=== PATIENT | male | born 1975 | race Caucasian/White ===

== ENCOUNTER 2017-07-19 20:56 | Emergency (ER) | payer MEDICAID ==
[2017-07-19 21:16] VITALS: BP 142/92
[2017-07-19] MEDS ORDERED: Ketorolac 60 MG/2 ML SDV IM ONE (21:20)
--- NOTE | 2017-07-19 21:23 | EDM.PDOC ---
ED HPI GENERAL MEDICAL PROBLEM - General Chief Complaint: Lower Extremity Injury/Pain Stated Complaint: R KNEE INJURY Time Seen by Provider: 07/19/17 21:18 Source of Information: Reports: Patient, Family, RN Notes Reviewed History Limitations: Reports: No Limitations - History of Present Illness INITIAL COMMENTS - FREE TEXT/NARRATIVE: 42-year-old gentleman presents emergency department day complaint of right knee pain, he does have a history of ACL repair as well as a couple arthroscopic is on this knee, the particular event happened tonight where he slipped on the ice twisted his right knee he can ambulate but it is quite painful knee Pain Score (Numeric/FACES): 10 - Related Data Allergies Allergy/AdvReac Type Severity Reaction Status Date / Time Penicillins Allergy Hives Verified 07/19/17 21:14 Home Meds: Home Meds Gabapentin [Neurontin] 800 mg PO TID 06/30/16 [History] Albuterol Sulfate [Proair Hfa] 2 puff INH Q6H PRN 07/28/16 [History] Sertraline [Zoloft] 150 mg PO DAILY 07/28/16 [History] Dextroamphetamine/Amphetamine [Adderall 20 mg Tablet] 40 mg PO TID 08/29/16 [ History] Past Medical History Cardiovascular History: Reports: High Cholesterol Respiratory History: Reports: Bronchitis, Recurrent, Pneumonia, Recurrent Gastrointestinal History: Reports: Other (See Below) Other Gastrointestinal History: colon infection Genitourinary History: Reports: Renal Calculus Neurological History: Reports: Concussion Psychiatric History: Reports: Anxiety, Depression Dermatologic History: Reports: Other (See Below) Other Dermatologic History: cyst on left chest, has had it since 5th grade. - Infectious Disease History Infectious Disease History: Reports: Chicken Pox - Past Surgical History HEENT Surgical History: Reports: Eye Surgery, Myringotomy w Tube(s), Tonsillectomy Musculoskeletal Surgical History: Reports: Other (See Below) Social & Family History - Tobacco Use Smoking Status *Q: Never Smoker Second Hand Smoke Exposure: No - Caffeine Use Caffeine Use: Reports: Coffee, Energy Drinks, Soda - Recreational Drug Use Recreational Drug Use: No Review of Systems - Review of Systems Review Of Systems: See Below Musculoskeletal: Reports: Joint Pain (Knee pain) Skin: Reports: No Symptoms Neurological: Reports: No Symptoms ED EXAM, GENERAL - Physical Exam Exam: See Below Free Text/Narrative:: Examination of the right knee I don't appreciate any erythema there is no bruising noted he does have a surgical scar across the anterior aspect of the knee he does not tolerate any movement without pain difficult to assess Mathias or valgus maneuvers as well as Elliott's secondary to pain Course - Vital Signs Last Recorded V/S: Last Vital Signs Temp 97.3 F 07/19/17 21:13 Pulse 87 07/19/17 21:13 Resp 16 07/19/17 21:13 BP 142/92 H 07/19/17 21:13 Pulse Ox 95 07/19/17 21:13 - Orders/Labs/Meds Orders: Active Orders 24 hr Category Date Time Status Knee 3V Rt [CR] Stat Exams 07/19/17 21:21 Taken Meds: Medications Discontinued Medications Generic Name Dose Route Start Last Admin Trade Name Rob PRN Reason Stop Dose Admin Ketorolac Tromethamine 60 mg 07/19/17 21:20 07/19/17 21:26 Toradol IM 07/19/17 21:21 60 mg ONETIME ONE Administration Departure - Departure Time of Disposition: 21:57 Disposition: Home, Self-Care 01 Condition: Good Clinical Impression: Strain of right knee Qualifiers: Encounter type: initial encounter Qualified Code(s): S86.911A - Strain of unspecified muscle(s) and tendon(s) at lower leg level, right leg, initial encounter - Discharge Information Referrals: PCP,None [Primary Care Provider] - Forms: ED Department Discharge Additional Instructions: Use ibuprofen for baseline pain control, use Percocet as needed for breakthrough pain, continue to use the crutches until reevaluated by your primary care provider on Tuesday - My Orders Last 24 Hours: My Active Orders 07/19/17 21:21 Knee 3V Rt [CR] Stat - Assessment/Plan Last 24 Hours: My Active Orders 07/19/17 21:21 Knee 3V Rt [CR] Stat Plan: Assessment Acuity = acute Site and laterality = right knee strain Etiology = secondary to twisting injury Manifestations = pain Location of injury = Home Lab values = knee x-ray I did review films myself I cannot appreciate any acute process, the official read from radiology is pending Plan He received some relief from the Toradol injection provided in the ED of 60 mg, Silviano wrap and crutches were used for comfort prescription written for Percocet one tablet by mouth 3 times a day when necessary total #10 he [facility] This note was dictated using Trunkbow voice recognition software please call with any questions on syntax or tl.
--- NOTE | 2017-07-20 08:35 | CR ---
Knee 3V Rt HISTORY: Pain, injury. COMPARISON: None FINDINGS: Postoperative change with small threaded screws in the ACL distribution. Normal joint space preservation. No effusion or fracture seen. No bony destructive change is seen.
== END 2017-07-19 22:17 | disposition home or self-care (01) ==
LOC: JP.ED 20:56
DX: S86.911A Strain of unspecified muscle(s) and tendon(s) at lower leg level, right leg, initial encounter (principal); E78.00 Pure hypercholesterolemia, unspecified; F32.9 Major depressive disorder, single episode, unspecified; Z79.899 Other long term (current) drug therapy; Z88.0 Allergy status to penicillin; W00.0XXA Fall on same level due to ice and snow, initial encounter; X50.1XXA Overexertion from prolonged static or awkward postures, initial encounter
CPT/HCPCS: 73562; 96374; 99284; J1885

== ENCOUNTER 2017-08-29 11:59 | Emergency (ER) | payer MEDICAID ==
[2017-08-29] MEDS ORDERED: Sodium Chloride 0.9% 1,000 ML IV SCH (12:30)
[2017-08-29] MEDS ORDERED: Ondansetron 4 MG/2 ML SDV IVPUSH ONE (12:31)
[2017-08-29] MEDS ORDERED: HYDROmorphone 0.5 MG/0.5 ML Syringe IVPUSH ONE ×2 (12:31→14:29)
[2017-08-29] MEDS ORDERED: HYDROmorphone 1 MG/ML Syringe IVPUSH ONE (15:48)
[2017-08-29] MEDS ORDERED: Ketorolac 30 MG/ML SDV IVPUSH ONE (16:46)
[2017-08-29 17:03] VITALS: BP 150/87
[2017-08-29] MEDS ORDERED: Tamsulosin 0.4 MG Cap.ER PO ONE (17:03)
--- NOTE | 2017-08-29 17:03 | EDM.PDOC ---
ED HPI GENERAL MEDICAL PROBLEM - General Chief Complaint: Genitourinary Problem Stated Complaint: LEFT FLANK PAIN/KIDNEY STONE Time Seen by Provider: 08/29/17 12:40 Source of Information: Reports: Patient History Limitations: Reports: No Limitations - History of Present Illness INITIAL COMMENTS - FREE TEXT/NARRATIVE: pt arrived with severe left flank pain. He states this started today and this has gotten progressively worse. s Onset: Today, Other (pt has a history of kidney stones. ) Duration: Hour(s): Location: Reports: Abdomen, Other ( left flank. ) Associated Symptoms: Reports: No Other Symptoms flank pain Pain Score (Numeric/FACES): 3 - Related Data Allergies Allergy/AdvReac Type Severity Reaction Status Date / Time Penicillins Allergy Hives Verified 07/19/17 21:14 Home Meds: Home Meds Gabapentin [Neurontin] 800 mg PO TID 06/30/16 [History] Albuterol Sulfate [Proair Hfa] 2 puff INH Q6H PRN 07/28/16 [History] Sertraline [Zoloft] 200 mg PO DAILY 07/28/16 [History] Dextroamphetamine/Amphetamine [Adderall 20 mg Tablet] 40 mg PO TID 08/29/16 [ History] Past Medical History Cardiovascular History: Reports: High Cholesterol Respiratory History: Reports: Bronchitis, Recurrent, Pneumonia, Recurrent Gastrointestinal History: Reports: Other (See Below) Other Gastrointestinal History: colon infection Genitourinary History: Reports: Renal Calculus Musculoskeletal History: Reports: Other (See Below) Other Musculoskeletal History: chronic pain right knee Neurological History: Reports: Concussion Psychiatric History: Reports: Anxiety, Depression Dermatologic History: Reports: Other (See Below) Other Dermatologic History: cyst on left chest, has had it since 5th grade. - Infectious Disease History Infectious Disease History: Reports: Chicken Pox - Past Surgical History HEENT Surgical History: Reports: Eye Surgery, Myringotomy w Tube(s), Tonsillectomy GI Surgical History: Reports: Appendectomy Musculoskeletal Surgical History: Reports: Arthroscopic Knee, Other (See Below) Other Musculoskeletal Surgeries/Procedures:: ACL repaired, removed, replaced Social & Family History - Tobacco Use Smoking Status *Q: Never Smoker Second Hand Smoke Exposure: No - Caffeine Use Caffeine Use: Reports: Coffee, Energy Drinks, Soda - Recreational Drug Use Recreational Drug Use: No ED ROS GENERAL - Review of Systems Review Of Systems: See Below Constitutional: Reports: No Symptoms HEENT: Reports: No Symptoms Respiratory: Reports: No Symptoms Cardiovascular: Reports: No Symptoms Endocrine: Reports: No Symptoms GI/Abdominal: Reports: No Symptoms : Reports: No Symptoms, Other (pt has severe left flank pain. ) Musculoskeletal: Reports: No Symptoms Skin: Reports: No Symptoms ED EXAM, GI/ABD - Physical Exam Exam: See Below Text/Narrative:: pt arrived with severe left flank pain. He has a history of stones and it flelt like a stone. Exam Limited By: No Limitations General Appearance: Alert, Anxious, Moderate Distress Ears: Normal TMs Nose: Normal Inspection Throat/Mouth: Normal Inspection Head: Atraumatic Neck: Normal Inspection Respiratory/Chest: No Respiratory Distress Cardiovascular: Regular Rate, Rhythm GI/Abdominal Exam: Other (pt has tenderness in the flank but not the abdoman. ) (Male) Exam: Normal Inspection Rectal (Males) Exam: Deferred Back Exam: Normal Inspection Course - Vital Signs Last Recorded V/S: Last Vital Signs Temp 35.8 C 08/29/17 13:40 Pulse 79 08/29/17 15:32 Resp 12 08/29/17 15:32 BP 135/87 08/29/17 15:32 Pulse Ox 97 08/29/17 15:32 - Orders/Labs/Meds Orders: Active Orders 24 hr Category Date Time Status Abdomen Pelvis wo Cont [CT] Stat Exams 08/29/17 14:29 Taken Sodium Chloride 0.9% [Normal Saline] 1,000 ml Med 08/29/17 12:30 Active IV ASDIRECTED Medication Orders Sodium Chloride (Normal Saline) 1,000 mls @ 999 mls/hr IV ASDIRECTED VIVEK Last Admin: 08/29/17 13:26 Dose: 999 mls/hr Labs: Laboratory Tests 08/29/17 08/29/17 08/29/17 Range/Units 12:31 12:36 12:36 WBC 9.9 (4.5-11.0) K/uL RBC 6.35 H (4.30-5.90) M/uL Hgb 17.5 H (12.0-15.0) g/dL Hct 49.5 (40.0-54.0) % MCV 78 L (80-98) fL MCH 28 (27-31) pg MCHC 35 (32-36) % Plt Count 257 (150-400) K/uL Neut % (Auto) 53 (36-66) % Lymph % (Auto) 35 (24-44) % [place] % (Auto) 11 H (2-6) % Eos % (Auto) 1 L (2-4) % Baso % (Auto) 0 (0-1) % Sodium 138 L (140-148) mmol/L Potassium 3.9 (3.6-5.2) mmol/L Chloride 102 (100-108) mmol/L Carbon Dioxide 28 (21-32) mmol/L Anion Gap 11.9 (5.0-14.0) mmol/L BUN 13 (7-18) mg/dL Creatinine 1.3 (0.8-1.3) mg/dL Est Cr Clr Drug Dosing 71.62 mL/min Estimated GFR (MDRD) > 60 (>60) Glucose 88 (74-106) mg/dL Calcium 9.4 (8.5-10.1) mg/dL Total Bilirubin 0.8 (0.2-1.0) mg/dL AST 24 (15-37) U/L ALT 45 (12-78) U/L Alkaline Phosphatase 78 (46-116) U/L Total Protein 7.6 (6.4-8.2) g/dL Albumin 4.5 (3.4-5.0) g/dL Globulin 3.1 (2.3-3.5) g/dL Albumin/Globulin Ratio 1.5 (1.2-2.2) Urine Color Yellow Urine Appearance Cloudy Urine pH 5.0 (4.5-8.0) Ur Specific [place] 1.025 (1.008-1.030) Urine Protein Trace (NEGATIVE) mg/dL Urine Glucose (UA) Normal (NEGATIVE) mg/dL Urine Ketones Negative (NEGATIVE) mg/dL Urine Occult Blood Large (NEGATIVE) Urine Nitrite Negative (NEGAITVE) Urine Bilirubin Small (NEGATIVE) Urine Urobilinogen Normal (NORMAL) mg/dL Ur Leukocyte Esterase Small (NEGATIVE) Urine RBC 0-5 (0-5) Urine WBC 5-10 H (0-5) Ur Epithelial Cells Rare Amorphous Sediment Not seen Urine Bacteria Not seen Urine Mucus Moderate Meds: Medications Generic Name Dose Route Start Last Admin Trade Name Freq PRN Reason Stop Dose Admin Sodium Chloride 1,000 mls @ 999 mls/hr 08/29/17 12:30 08/29/17 13:26 Normal Saline IV 999 mls/hr ASDIRECTED VIVEK Administration Discontinued Medications Generic Name Dose Route Start Last Admin Trade Name Eranq PRN Reason Stop Dose Admin Hydromorphone HCl 0.5 mg 08/29/17 12:31 08/29/17 13:35 Dilaudid IVPUSH 08/29/17 12:32 0.5 mg ONETIME ONE Administration Hydromorphone HCl 0.5 mg 08/29/17 14:29 08/29/17 14:34 Dilaudid IVPUSH 08/29/17 14:30 0.5 mg ONETIME ONE Administration Hydromorphone HCl 1 mg 08/29/17 15:48 08/29/17 16:01 Dilaudid IVPUSH 08/29/17 15:49 1 mg ONETIME ONE Administration Ketorolac Tromethamine 30 mg 08/29/17 16:46 Toradol IVPUSH 08/29/17 16:47 ONETIME ONE Ondansetron HCl 4 mg 08/29/17 12:31 08/29/17 13:32 Zofran IVPUSH 08/29/17 12:32 4 mg ONETIME ONE Administration - Re-Assessments/Exams Free Text/Narrative Re-Assessment/Exam: 08/29/17 17:02 urine did not reveal alot of blood. He waS GIVEN A TOTAL OF 2 MG OF DILAUDID. hE HAS HAD RELIEF WITH THAT. hE HAD A CAT SCAN OF THE ABDOMAN WHICH REVEALED A 7 MM STONE IN THE PROXIMAL URETER. Departure - Departure Time of Disposition: 17:03 Disposition: Home, Self-Care 01 Condition: Fair Clinical Impression: Calculus of proximal left ureter - Discharge Information Referrals: PCP,None [Primary Care Provider] - Care Plan Goals: PUSH FLUIDS. hE WAS ADVISED THAT THIS WAS A LARGE STONE AND THAR IT MIGHT NOT BE PASSABLE AND HE WOULD NEED TO SEE UROLOGY. FLOMAX .4 DAILY, TORODOL 10MG QID, PERCOCET 5/325 1 TAB Q6H PRN FOR PAIN. - My Orders Last 24 Hours: My Active Orders 08/29/17 12:30 Sodium Chloride 0.9% [Normal Saline] 1,000 ml IV ASDIRECTED 08/29/17 14:29 Abdomen Pelvis wo Cont [CT] Stat - Assessment/Plan Last 24 Hours: My Active Orders 08/29/17 12:30 Sodium Chloride 0.9% [Normal Saline] 1,000 ml IV ASDIRECTED 08/29/17 14:29 Abdomen Pelvis wo Cont [CT] Stat
== END 2017-08-29 17:33 | disposition home or self-care (01) ==
LOC: JP.ED 11:59
DX: N20.1 Calculus of ureter (principal); E78.00 Pure hypercholesterolemia, unspecified; Z88.0 Allergy status to penicillin; Z79.899 Other long term (current) drug therapy
CPT/HCPCS: 36415; 74176; 80053; 81001; 85025; 96361; 96374; 96375; 96376; 99284; J1170; J1885; J2405; J7040

== ENCOUNTER 2017-12-11 15:34 | Emergency (ER) | payer MEDICAID ==
[2017-12-11] MEDS ORDERED: Aspirin 81 MG Tab.Chew PO ONE (16:03)
[2017-12-11] MEDS ORDERED: Sodium Chloride 0.9% 10 ML Syringe FLUSH PRN (16:03)
[2017-12-11] MEDS ORDERED: Nitroglycerin 0.4 MG Tab.SL SL PRN (16:04)
--- NOTE | 2017-12-11 16:07 | EDM.PDOC ---
ED HPI GENERAL MEDICAL PROBLEM - General Chief Complaint: Chest Pain Stated Complaint: HEART Time Seen by Provider: 12/11/17 16:00 Source of Information: Reports: Patient History Limitations: Reports: No Limitations - History of Present Illness INITIAL COMMENTS - FREE TEXT/NARRATIVE: Alphonse is a 42 year old male, hx of IN a "few years ago" who was here with his who was being seen as a patient when he developed sudden onset of left sided sharp chest pain and numbness down his left arm. Patient denies any recent illness, denies hx of stents. He does not take aspirin. He denies smoking but does chew tobacco. Pain feels similar per patient to last IN. Nothing makes pain better or worse. Onset: Sudden Left Chest Pain Score (Numeric/FACES): 9 - Related Data Allergies Allergy/AdvReac Type Severity Reaction Status Date / Time Penicillins Allergy Hives Verified 12/11/17 15:43 Home Meds: Home Meds Gabapentin [Neurontin] 800 mg PO TID 06/30/16 [History] Albuterol Sulfate [Proair Hfa] 2 puff INH Q6H PRN 07/28/16 [History] Sertraline [Zoloft] 200 mg PO DAILY 07/28/16 [History] Dextroamphetamine/Amphetamine [Adderall 20 mg Tablet] 40 mg PO TID 08/29/16 [ History] Past Medical History Cardiovascular History: Reports: High Cholesterol Respiratory History: Reports: Bronchitis, Recurrent, Pneumonia, Recurrent Gastrointestinal History: Reports: Other (See Below) Other Gastrointestinal History: colon infection Genitourinary History: Reports: Renal Calculus Musculoskeletal History: Reports: Other (See Below) Other Musculoskeletal History: chronic pain right knee Neurological History: Reports: Concussion Psychiatric History: Reports: ADHD, Anxiety, Depression, PTSD Dermatologic History: Reports: Other (See Below) Other Dermatologic History: cyst on left chest, has had it since 5th grade. - Infectious Disease History Infectious Disease History: Reports: Chicken Pox - Past Surgical History HEENT Surgical History: Reports: Eye Surgery, Myringotomy w Tube(s), Tonsillectomy GI Surgical History: Reports: Appendectomy Male Surgical History: Reports: Kidney Stone Extraction Musculoskeletal Surgical History: Reports: Arthroscopic Knee, Other (See Below) Other Musculoskeletal Surgeries/Procedures:: ACL repaired, removed, replaced Social & Family History - Tobacco Use Years of Tobacco use: 24 Packs/Tins Daily: 0.3 - Caffeine Use Caffeine Use: Reports: Coffee, Energy Drinks, Soda - Recreational Drug Use Recreational Drug Use: No ED ROS GENERAL - Review of Systems Review Of Systems: ROS reveals no pertinent complaints other than HPI. ED EXAM, GENERAL - Physical Exam Exam: See Below Exam Limited By: No Limitations General Appearance: Alert, WD/WN, No Apparent Distress Throat/Mouth: Normal Inspection Head: Atraumatic Neck: Normal Inspection Respiratory/Chest: No Respiratory Distress, Lungs Clear Cardiovascular: Normal Peripheral Pulses, Regular Rate, Rhythm, No Murmur GI/Abdominal: Normal Bowel Sounds, Soft, Non-Tender Extremities: Normal Inspection Neurological: Alert, Oriented, CN II-XII Intact Psychiatric: Normal Affect, Anxious Skin Exam: Warm, Dry, Intact Lymphatic: No Adenopathy EKG INTERPRETATION EKG Date: 12/11/17 Time: 15:35 Rhythm: NSR [place]: Normal P-Wave: Present QRS: Normal ST-T: Normal QT: Normal Comparison: No Change (From 07/24/2016) Course - Vital Signs Last Recorded V/S: Last Vital Signs Temp 37.5 C 12/11/17 15:38 Pulse 94 12/11/17 19:08 Resp 16 12/11/17 19:08 BP 165/98 H 12/11/17 19:08 Pulse Ox 94 L 12/11/17 19:08 Alphonse is a 42-year-old male, history of IN who presents to the emergency department today with acute onset of left-sided chest pain. Please refer to history of present illness and focused exam. Patient is hemodynamically stable here is afebrile, pain is not reproducible. Pain did not change here with nitroglycerin, did improve with Toradol and Ativan. Initial troponin is unremarkable, remaining blood work as noted above. 1945-Second troponin remains undectable. Heart score of 2 supporting discharge home with follow up. Patient is pain free and requesting discharge. Start baby aspirin daily. Follow up with primary this week. Reasons to return to the ED discussed. Patient agreeable and discharged in stable condition with his daughter driving. - Orders/Labs/Meds Orders: Active Orders 24 hr Category Date Time Status EKG Documentation Completion [RC] ASDIRECTED Care 12/11/17 17:26 Active Peripheral IV Care [RC] . DIRECTED Care 12/11/17 16:03 Active Chest 2V [CR] Stat Exams 12/11/17 17:20 Taken Nitroglycerin [Nitrostat] Med 12/11/17 16:04 Active 0.4 mg SL Q5M PRN Sodium Chloride 0.9% [Saline Flush] Med 12/11/17 16:03 Active 10 ml FLUSH ASDIRECTED PRN Peripheral IV Insertion Adult [OM.PC] Routine Oth 12/11/17 16:03 Ordered EKG 12 Lead [EK] Stat Ther 12/11/17 17:25 Ordered Medication Orders Nitroglycerin (Nitrostat) 0.4 mg SL Q5M PRN PRN Reason: Chest Pain Last Admin: 12/11/17 16:23 Dose: 0.4 mg Sodium Chloride (Saline Flush) 10 ml FLUSH ASDIRECTED PRN PRN Reason: Keep Vein Open Last Admin: 12/11/17 16:23 Dose: 10 ml Labs: Laboratory Tests 12/11/17 12/11/17 12/11/17 Range/Units 16:07 16:07 19:26 WBC 8.2 (4.5-11.0) K/uL RBC 5.55 (4.30-5.90) M/uL Hgb 15.9 H (12.0-15.0) g/dL Hct 43.5 (40.0-54.0) % MCV 78 L (80-98) fL MCH 29 (27-31) pg MCHC 37 H (32-36) % Plt Count 229 (150-400) K/uL Neut % (Auto) 65 (36-66) % Lymph % (Auto) 24 (24-44) % [place] % (Auto) 11 H (2-6) % Eos % (Auto) 1 L (2-4) % Baso % (Auto) 0 (0-1) % Sodium 138 L (140-148) mmol/L Potassium 3.5 L (3.6-5.2) mmol/L Chloride 103 (100-108) mmol/L Carbon Dioxide 21 (21-32) mmol/L Anion Gap 17.5 H (5.0-14.0) mmol/L BUN 11 (7-18) mg/dL Creatinine 1.2 (0.8-1.3) mg/dL Est Cr Clr Drug Dosing 77.58 mL/min Estimated GFR (MDRD) > 60 (>60) Glucose 109 H (74-106) mg/dL Calcium 8.6 (8.5-10.1) mg/dL Total Bilirubin 1.0 (0.2-1.0) mg/dL AST 18 (15-37) U/L ALT 33 (12-78) U/L Alkaline Phosphatase 78 (46-116) U/L Troponin I < 0.017 < 0.017 (0.000-0.056) ng/mL Total Protein 7.3 (6.4-8.2) g/dL Albumin 4.2 (3.4-5.0) g/dL Globulin 3.1 (2.3-3.5) g/dL Albumin/Globulin Ratio 1.4 (1.2-2.2) Meds: Medications Generic Name Dose Route Start Last Admin Trade Name Rob PRN Reason Stop Dose Admin Nitroglycerin 0.4 mg 12/11/17 16:04 12/11/17 16:23 Nitrostat SL 0.4 mg Q5M PRN Administration Chest Pain Sodium Chloride 10 ml 12/11/17 16:03 12/11/17 16:23 Saline Flush FLUSH 10 ml ASDIRECTED PRN Administration Keep Vein Open Discontinued Medications Generic Name Dose Route Start Last Admin Trade Name Freq PRN Reason Stop Dose Admin Aspirin 324 mg 12/11/17 16:03 12/11/17 16:23 Aspirin PO 12/11/17 16:04 324 mg ONETIME ONE Administration Ketorolac Tromethamine 30 mg 12/11/17 16:32 12/11/17 16:50 Toradol IVPUSH 12/11/17 16:33 30 mg ONETIME ONE Administration Lorazepam 1 mg 12/11/17 16:32 12/11/17 16:52 Ativan IVPUSH 12/11/17 16:33 1 mg ONETIME ONE Administration Morphine Sulfate 4 mg 12/11/17 18:08 12/11/17 18:16 Morphine IVPUSH 12/11/17 18:09 4 mg ONETIME ONE Administration Morphine Sulfate 4 mg 12/11/17 18:44 12/11/17 19:06 Morphine IVPUSH 12/11/17 18:45 4 mg ONETIME ONE Administration Departure - Departure Time of Disposition: 20:15 Disposition: Home, Self-Care 01 Condition: Good Clinical Impression: Atypical chest pain Instructions: Nonspecific Chest Pain Referrals: PCP,None [Primary Care Provider] - Forms: ED Department Discharge Additional Instructions: Start taking a baby aspirin daily. Follow up with your primary care provider later this week to discuss need for stress test and echocardiogram Return here with any return or worsening of your symptoms. - My Orders Last 24 Hours: My Active Orders 12/11/17 16:03 Peripheral IV Care [RC] . DIRECTED Sodium Chloride 0.9% [Saline Flush] 10 ml FLUSH ASDIRECTED PRN Peripheral IV Insertion Adult [OM.PC] Routine 12/11/17 16:04 Nitroglycerin [Nitrostat] 0.4 mg SL Q5M PRN 12/11/17 17:20 Chest 2V [CR] Stat 12/11/17 17:25 EKG 12 Lead [EK] Stat 12/11/17 17:26 EKG Documentation Completion [RC] ASDIRECTED - Assessment/Plan Last 24 Hours: My Active Orders 12/11/17 16:03 Peripheral IV Care [RC] . DIRECTED Sodium Chloride 0.9% [Saline Flush] 10 ml FLUSH ASDIRECTED PRN Peripheral IV Insertion Adult [OM.PC] Routine 12/11/17 16:04 Nitroglycerin [Nitrostat] 0.4 mg SL Q5M PRN 12/11/17 17:20 Chest 2V [CR] Stat 12/11/17 17:25 EKG 12 Lead [EK] Stat 12/11/17 17:26 EKG Documentation Completion [RC] ASDIRECTED
[2017-12-11] MEDS ORDERED: Ketorolac 30 MG/ML SDV IVPUSH ONE (16:32)
[2017-12-11] MEDS ORDERED: LORazepam 2 MG/ML SDV IVPUSH ONE (16:32)
[2017-12-11] MEDS ORDERED: Morphine 4 MG/ML Syringe IVPUSH ONE ×2 (18:08→18:44)
[2017-12-11 19:09] VITALS: BP 165/98
--- NOTE | 2017-12-12 09:57 | CR ---
CHEST: 2 view CLINICAL HISTORY:Chest pain COMPARISON:2017 FINDINGS: Heart size, pulmonary vascularity and hilar structures are normal. No infiltrate effusion or pneumothorax is seen. . IMPRESSION: No acute pulmonary process
== END 2017-12-11 20:50 | disposition home or self-care (01) ==
LOC: JP.ED 15:34
DX: R07.89 Other chest pain (principal); F17.210 Nicotine dependence, cigarettes, uncomplicated; E78.00 Pure hypercholesterolemia, unspecified; F41.9 Anxiety disorder, unspecified; F32.9 Major depressive disorder, single episode, unspecified; F43.10 Post-traumatic stress disorder, unspecified; F90.9 Attention-deficit hyperactivity disorder, unspecified type; Z88.0 Allergy status to penicillin; Z79.899 Other long term (current) drug therapy
CPT/HCPCS: 36415; 71046; 80053; 84484; 85025; 93005; 96374; 96375; 96376; 99285; A9270; J1885; J2060; J2270; J7050

== ENCOUNTER 2018-07-28 20:01 | Emergency (ER) | payer MEDICAID ==
[2018-07-28] MEDS ORDERED: Ketorolac 60 MG/2 ML SDV IM ONE (20:55)
[2018-07-28] MEDS ORDERED: Acetaminophen/oxyCODONE 325-5 MG Tab PO ONE (20:55)
--- NOTE | 2018-07-28 20:57 | EDM.PDOC ---
ED HPI GENERAL MEDICAL PROBLEM - General Chief Complaint: Flank Pain Stated Complaint: KIDNEY STONES Time Seen by Provider: 07/28/18 20:56 Source of Information: Reports: Patient, Old Records, RN History Limitations: Reports: No Limitations - History of Present Illness INITIAL COMMENTS - FREE TEXT/NARRATIVE: 43 yo male with kidney stone hx presents with L flank pain. No nausea or fever. No gross hematuria. Feels like his previous kidney stones. Onset: Today Onset Date: 07/28/18 Onset Time: 19:30 Duration: Minutes:, Waxing/Waning Location: Reports: Back (L flank) Quality: Reports: Ache, Stabbing Severity: Severe Improves with: Reports: None Worsens with: Reports: None Context: Reports: Other (see HPI) Associated Symptoms: Reports: No Other Symptoms. 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 (see below) (none) Left Flank Pain Score (Numeric/FACES): 10 - Related Data Allergies Allergy/AdvReac Type Severity Reaction Status Date / Time Penicillins Allergy Hives Verified 07/28/18 20:47 Home Meds: Home Meds Gabapentin [Neurontin] 800 mg PO TID 06/30/16 [History] Albuterol Sulfate [Proair Hfa] 2 puff INH Q6H PRN 07/28/16 [History] Sertraline [Zoloft] 200 mg PO DAILY 07/28/16 [History] Dextroamphetamine/Amphetamine [Adderall 20 mg Tablet] 40 mg PO TID 08/29/16 [ History] Past Medical History Cardiovascular History: Reports: High Cholesterol Respiratory History: Reports: Bronchitis, Recurrent, Pneumonia, Recurrent Gastrointestinal History: Reports: Other (See Below) Other Gastrointestinal History: colon infection Genitourinary History: Reports: Renal Calculus Musculoskeletal History: Reports: Other (See Below) Other Musculoskeletal History: chronic pain right knee Neurological History: Reports: Concussion Psychiatric History: Reports: ADHD, Anxiety, Depression, PTSD Dermatologic History: Reports: Other (See Below) Other Dermatologic History: cyst on left chest, has had it since 5th grade. - Infectious Disease History Infectious Disease History: Reports: Chicken Pox - Past Surgical History HEENT Surgical History: Reports: Eye Surgery, Myringotomy w Tube(s), Tonsillectomy GI Surgical History: Reports: Appendectomy Male Surgical History: Reports: Kidney Stone Extraction Musculoskeletal Surgical History: Reports: Arthroscopic Knee, Other (See Below) Other Musculoskeletal Surgeries/Procedures:: ACL repaired, removed, replaced Social & Family History - Tobacco Use Smoking Status *Q: Never Smoker - Caffeine Use Caffeine Use: Reports: Coffee, Energy Drinks, Soda - Recreational Drug Use Recreational Drug Use: No ED ROS GENERAL - Review of Systems Review Of Systems: See Below Constitutional: Reports: No Symptoms HEENT: Reports: No Symptoms Respiratory: Reports: No Symptoms Cardiovascular: Reports: No Symptoms GI/Abdominal: Reports: No Symptoms : Reports: Flank Pain (left) Musculoskeletal: Reports: No Symptoms Skin: Reports: No Symptoms Neurological: Reports: No Symptoms ED EXAM, RENAL/ - Physical Exam Exam: See Below Exam Limited By: No Limitations General Appearance: Alert, WD/WN, Mild Distress Eye Exam: Bilateral Eye: Normal Inspection Ears: Normal External Exam, Normal Canal, Hearing Grossly Normal Nose: Normal Inspection, No Blood Throat/Mouth: Normal Inspection, Normal Lips, Normal Voice, No Airway Compromise Head: Atraumatic, Normocephalic Neck: Normal Inspection Respiratory/Chest: No Respiratory Distress, Lungs Clear, Normal Breath Sounds, No Accessory Muscle Use Cardiovascular: Regular Rate, Rhythm, No Edema GI/Abdominal: Normal Bowel Sounds, Soft, Non-Tender, No Distention (Male) Exam: No: Hernia, Rash Back Exam: Normal Inspection, Full Range of Motion. No: CVA Tenderness (R), CVA Tenderness (L), Decreased Range of Motion, Muscle Spasm, Paraspinal Tenderness, Vertebral Tenderness Extremities: Normal Inspection, Normal Range of Motion, Non-Tender Neurological: Alert, Oriented, CN II-XII Intact, Normal Cognition, No Motor/ Sensory Deficits Psychiatric: Normal Affect, Normal Mood Skin Exam: Warm, Dry, Intact, Normal Color, No Rash Lymphatic: No Adenopathy Course - Vital Signs Last Recorded V/S: Last Vital Signs Temp 36.6 C 07/28/18 20:47 Pulse 99 07/28/18 22:39 Resp 20 07/28/18 22:39 BP 153/103 H 07/28/18 22:39 Pulse Ox 94 L 07/28/18 22:39 - Orders/Labs/Meds Orders: Active Orders 24 hr Category Date Time Status Abdomen Pelvis wo Cont [CT] Stat Exams 07/28/18 20:56 Taken Labs: Laboratory Tests 07/28/18 07/28/18 07/28/18 Range/Units 20:12 21:55 21:55 WBC 8.1 (4.5-11.0) K/uL RBC 5.54 (4.30-5.90) M/uL Hgb 15.6 H (12.0-15.0) g/dL Hct 44.4 (40.0-54.0) % MCV 80 (80-98) fL MCH 28 (27-31) pg MCHC 35 (32-36) % Plt Count 217 (150-400) K/uL Sodium 140 (140-148) mmol/L Potassium 4.1 (3.6-5.2) mmol/L Chloride 104 (100-108) mmol/L Carbon Dioxide 26 (21-32) mmol/L Anion Gap 10.3 (5.0-14.0) mmol/L BUN 17 D (7-18) mg/dL Creatinine 1.3 (0.8-1.3) mg/dL Est Cr Clr Drug Dosing 70.88 mL/min Estimated GFR (MDRD) > 60 (>60) Glucose 120 H (74-106) mg/dL Calcium 9.3 (8.5-10.1) mg/dL Total Bilirubin 0.7 (0.2-1.0) mg/dL AST 71 H D (15-37) U/L ALT 152 H (12-78) U/L Alkaline Phosphatase 100 (46-116) U/L C-Reactive Protein 0.51 H (0.0-0.3) mg/dL Total Protein 7.3 (6.4-8.2) g/dL Albumin 3.9 (3.4-5.0) g/dL Globulin 3.4 (2.3-3.5) g/dL Albumin/Globulin Ratio 1.1 L (1.2-2.2) Urine Color Yellow Urine Appearance Clear Urine pH 6.0 (4.5-8.0) Ur Specific [place] 1.015 (1.008-1.030) Urine Protein Negative (NEGATIVE) mg/dL Urine Glucose (UA) Normal (NEGATIVE) mg/dL Urine Ketones Negative (NEGATIVE) mg/dL Urine Occult Blood Negative (NEGATIVE) Urine Nitrite Negative (NEGAITVE) Urine Bilirubin Negative (NEGATIVE) Urine Urobilinogen Normal (NORMAL) mg/dL Ur Leukocyte Esterase Negative (NEGATIVE) Urine RBC 0-5 (0-5) Urine WBC 0-5 (0-5) Ur Epithelial Cells Rare Amorphous Sediment Rare Urine Bacteria Not seen Urine Mucus Not seen Urine Other Meds: Medications Discontinued Medications Generic Name Dose Route Start Last Admin Trade Name Rob PRN Reason Stop Dose Admin Ketorolac Tromethamine 60 mg 07/28/18 20:55 07/28/18 21:08 Toradol IM 07/28/18 20:56 60 mg ONETIME ONE Administration Oxycodone/Acetaminophen 2 tab 07/28/18 20:55 07/28/18 21:09 Percocet 325-5 Mg PO 07/28/18 20:56 2 tab ONETIME ONE Administration - Radiology Interpretation Free Text/Narrative:: CT abd/pelvis-neg CT Results Date: 07/28/18 Departure - Departure Time of Disposition: 22:50 Disposition: Home, Self-Care 01 Condition: Good Clinical Impression: Flank pain, Elevated LFTs - Discharge Information *PRESCRIPTION DRUG MONITORING PROGRAM REVIEWED*: No *COPY OF PRESCRIPTION DRUG MONITORING REPORT IN PATIENT TAV[place]: No Instructions: Flank Pain, Adult, [id number] Referrals: Luis Miguel MD [Primary Care Provider] - Forms: ED Department Discharge Additional Instructions: See your doctor for recheck early next week if not better. Avoid soda pop. Take ibuprofen 600 mg every 6 hrs with food. Take Percocet or acetaminophen if not improving. Return here if worse. - My Orders Last 24 Hours: My Active Orders 07/28/18 20:56 Abdomen Pelvis wo Cont [CT] Stat - Assessment/Plan Last 24 Hours: My Active Orders 07/28/18 20:56 Abdomen Pelvis wo Cont [CT] Stat
[2018-07-28 22:39] VITALS: BP 153/103
== END 2018-07-28 23:06 | disposition home or self-care (01) ==
LOC: JP.ED 20:01
DX: R10.9 Unspecified abdominal pain (principal); R79.89 Other specified abnormal findings of blood chemistry; F41.9 Anxiety disorder, unspecified; F32.9 Major depressive disorder, single episode, unspecified; Z88.0 Allergy status to penicillin
CPT/HCPCS: 36415; 74176; 80053; 81001; 85027; 86140; 96372; 99284; A9270; J1885

== ENCOUNTER 2022-10-27 07:55 | Day surgery (SDC) | payer OTHER ==
[~2022-10-27 07:55] MED LIST: Dexamethasone 4 MG/ML SDV ONE; Glycopyrrolate 0.2 MG/ML 5 ML MDV ONE; Lactated Ringers 1,000 ML IV SCH; Neostigmine Methylsulfate 1 MG/ML 5 ML Syringe ONE; Ondansetron 4 MG/2 ML SDV ONE; Propofol 200 MG/20 ML SDV ONE; Rocuronium 50 MG/5 ML Vial ONE; Succinylcholine 200 MG/10 ML MDV ONE; fentaNYL 250 MCG/5 ML SDV ONE
[2022-10-27] MEDS ORDERED: Bupivacaine 0.5% 30 ML SDV ONE (08:10)
[2022-10-27] MEDS ORDERED: Nozin Nasal Sanitizer NASBOTH ONE (08:45)
[2022-10-27 08:48] LABS: ESTIMATED GFR 68 mL/min (>60)
[2022-10-27] MEDS ORDERED: Clindamycin Phosphate in D5W 900 MG in Premix Bag 1 BAG IV ONE ×2 (09:30)
[2022-10-27] MEDS ORDERED: Ketorolac 30 MG/ML SDV ONE (09:46)
[2022-10-27] MEDS ORDERED: Sugammadex Sodium 200 MG/2 ML VIAL ONE (09:51)
[2022-10-27] MEDS ORDERED: Acetaminophen/HYDROcodone 325-5 MG Tab PO PRN (10:31)
[2022-10-27 11:33] VITALS: BP 126/62; PULSE 80
== END 2022-10-27 12:00 | disposition home or self-care (01) ==
LOC: JP.SDS 07:55
PROVIDERS: ATTEND Specialist
DX: M22.41 Chondromalacia patellae, right knee (principal); F33.1 Major depressive disorder, recurrent, moderate; F41.9 Anxiety disorder, unspecified; E66.9 Obesity, unspecified; Z68.34 Body mass index [BMI] 34.0-34.9, adult; Z88.0 Allergy status to penicillin; Z87.891 Personal history of nicotine dependence; Z79.899 Other long term (current) drug therapy
CPT/HCPCS: 29877; 36415; 80053; 85027; 85610; A9270; C1713; J1100; J1885; J2405; J2704; J2710; J3010; J3490; J7120; J0330

== ENCOUNTER 2023-10-04 22:14 | Emergency (ER) | payer OTHER, MEDICAID ==
[2023-10-04 22:39] LABS: BASOPHILS ABSOLUTE AUTO 0.04 K/uL (0.00-0.10); BASOPHILS PERCENT AUTO 0.3 % (0.1-1.3); EOSINOPHILS ABSOLUTE AUTO 0.08 K/uL (0.00-0.40); EOSINOPHILS PERCENT AUTO 0.6 % (0.0-5.4); HEMATOCRIT 43.7 % (38.4-49.7); HEMOGLOBIN 15.6 g/dL (12.9-16.9); IMMATURE GRAN ABSOLUTE AUTO 0.04 K/uL (0.00-0.23); IMMATURE GRAN PERCENT AUTO 0.3 % (0.0-0.7); LYMPHOCYTES ABSOLUTE AUTO 2.56 K/uL (0.8-3.3); LYMPHOCYTES PERCENT AUTO 19.9 % (11.4-47.7); MEAN CORPUSCULAR HEMOGLOBIN 28.2 pg (31.6-35.5); MEAN CORPUSCULAR HGB CONC 35.7 g/dL (31.6-35.5); MEAN CORPUSCULAR VOLUME 78.9 fL (81.4-99.0); MONOCYTES ABSOLUTE AUTO 0.86 K/uL (0.20-0.90); MONOCYTES PERCENT AUTO 6.7 % (3.3-12.6); NEUTROPHILS ABSOLUTE AUTO 9.26 K/uL (1.0-7.6); NEUTROPHILS PERCENT AUTO 72.2 % (40.0-78.1); PLATELET COUNT,PLT 204 K/uL (130-375); RED BLOOD CELL COUNT 5.54 M/uL (4.14-5.76); WHITE BLOOD CELL COUNT,WBC 12.8 K/uL (3.2-11.0)
[2023-10-04 23:00] LABS: BLOOD UREA NITROGEN,BUN 20 mg/dL (7-18); CALCIUM 8.7 mg/dL (8.5-10.1); CARBON DIOXIDE,CO2 24 mmol/L (21-32); CHLORIDE,CL 104 mmol/L (100-108); CREATININE 1.3 mg/dL (0.8-1.3); EST CRCL DRUG DOSING (CG) 67.23 mL/min; ESTIMATED GFR 68 mL/min (>60); GLUCOSE RANDOM 140 mg/dL (74-106); POTASSIUM,K 3.8 mmol/L (3.6-5.2); SODIUM,NA 139 mmol/L (140-148)
[2023-10-04 23:03] LABS: ANION GAP 14.8 mmol/L (5.0-14.0); TROPONIN I HIGH SENSITIVITY < 4.0 pg/mL (<=60.3)
[2023-10-05 01:16] VITALS: BP 137/86; PULSE 82
== END 2023-10-05 01:15 | disposition home or self-care (01) ==
LOC: JP.ED 22:14
DX: R07.89 Other chest pain (principal); Z88.0 Allergy status to penicillin; Z79.899 Other long term (current) drug therapy; Z90.49 Acquired absence of other specified parts of digestive tract; Z87.891 Personal history of nicotine dependence
CPT/HCPCS: 36415; 71045; 71045-26; 80048; 84484; 85025; 85379; 93005; 93010; 99283; 99285

== ENCOUNTER 2023-11-24 07:25 | Day surgery (SDC) | payer MEDICAID, OTHER ==
[2023-11-24] MEDS ORDERED: Midazolam 1 MG/ML 2 ML SDV ONE (08:43)
[2023-11-24] MEDS ORDERED: Propofol 200 MG/20 ML SDV ONE (08:43)
[2023-11-24] MEDS ORDERED: fentaNYL 50 MCG/ML SDV ONE (08:43)
[2023-11-24] MEDS: Sodium Chloride 0.9% 1,000 ML IV SCH (09:51)
[2023-11-24 11:12] VITALS: BP 123/88; PULSE 81
== END 2023-11-24 11:10 | disposition home or self-care (01) ==
LOC: JP.SDS 07:25
PROVIDERS: ATTEND Surgery
DX: Z12.11 Encounter for screening for malignant neoplasm of colon (principal); K63.5 Polyp of colon; Z80.0 Family history of malignant neoplasm of digestive organs
CPT/HCPCS: 00811-QZ; 88305; J2250; J2704; J3010; J7030